=== PATIENT | female | born 1985 ===

== ENCOUNTER 2018-07-18 14:12 | Emergency (ER) | payer BC ==
--- NOTE | 2018-07-18 16:56 | UC ---
Back Pain HPI - HPI Summary HPI Summary: hx of fall several days ago on the ice, now with persistent pain , - History of Current Complaint Chief Complaint: UCBackPain Stated Complaint: BACK PAIN Time Seen by Provider: 07/18/18 16:10 Hx Obtained From: Patient Hx Last Menstrual Period: <1 WEEK AGO ?: No Onset/Duration: Sudden Onset Timing: Constant Severity Initially: Moderate Severity Currently: Moderate Pain Intensity: 7 Character: Sharp Aggravating Factor(s): Movement Alleviating Factor(s): Rest Associated Signs And Symptoms: Positive: Negative - Allergies/Home Medications Allergies/Adverse Reactions: Allergies Allergy/AdvReac Type Severity Reaction Status Date / Time codeine AdvReac GI Upset Verified 07/18/18 15:49 Home Medications: Home Medications Amphetamine MIXED SALT TAB* [Adderall TAB*] 10 mg PO BID 07/18/18 [History Confirmed 07/18/18] Ibuprofen TAB* [Advil TAB*] 400 mg PO ONCE PRN 07/18/18 [History Confirmed 07/18] PMH/Surg Hx/FS Hx/Imm Hx Previously Healthy: Yes - Surgical History Surgical History: None - Social History Alcohol Use: Occasionally Substance Use Type: None Smoking Status (MU): Current Every Day Smoker Type: Cigarettes Amount Used/How Often: 1/3 PPD Review of Systems All Other Systems Reviewed And Are Negative: Yes Constitutional: Positive: Negative Skin: Positive: Negative Eyes: Positive: Negative ENT: Positive: Negative Respiratory: Positive: Negative Cardiovascular: Positive: Negative Gastrointestinal: Positive: Negative Genitourinary: Positive: Negative Motor: Positive: Negative, Other Neurovascular: Positive: Negative Musculoskeletal: Positive: Negative - dtrs symmetrical. sensory exam normal Is Patient Immunocompromised?: No Physical Exam Triage Information Reviewed: Yes Appearance: Well-Appearing Vital Signs: Initial Vital Signs Temp 37.3 C 07/18/18 15:44 Pulse 115 07/18/18 15:44 Resp 16 07/18/18 15:44 BP 148/97 07/18/18 15:44 Pulse Ox 99 07/18/18 15:44 Vital Signs Reviewed: Yes Eye Exam: Normal ENT Exam: Normal Neck exam: Normal Respiratory Exam: Normal Cardiovascular Exam: Normal Abdominal Exam: Normal Musculoskeletal: Positive: Strength Intact, Other: - sensory exam normal, dtrs symmetrical,normal heel and toe walking , strength symmetrical Neurological: Positive: Alert Skin Exam: Normal Back Pain Course/Dx - Differential Dx/Diagnosis Provider Diagnosis: Lower back injury Discharge - Sign-Out/Discharge Documenting (check all that apply): Patient Departure All imaging exams completed and their final reports reviewed: Yes - Discharge Plan Condition: Fair Disposition: HOME Patient Education Materials: Low Back Strain (ED), Acute Low Back Pain (ED) Referrals: No Primary Care Phys,NOPCP [Primary Care Provider] - Additional Instructions: bedrest , nsaids - Billing Disposition and Condition Condition: FAIR Disposition: Home
== END 2018-07-18 17:00 | disposition home or self-care (01) ==
LOC: EDSEX 14:12 → UCEAST 14:12
DX: S39.92XA Unspecified injury of lower back, initial encounter (principal); W00.0XXA Fall on same level due to ice and snow, initial encounter; Y92.9 Unspecified place or not applicable; Z88.5 Allergy status to narcotic agent; F17.210 Nicotine dependence, cigarettes, uncomplicated
CPT/HCPCS: 72110; 99202; G0463